=== PATIENT | male | born 1935 | race Caucasian/White ===

== ENCOUNTER → 2017-02-27 | Outpatient (CLI) | payer OTHER ==
[2014-04-12 11:48] VITALS: BP 130/94
[2017-02-27 09:27] LABS: BASOPHILS # (AUTO) 0.1 X10^3/uL (0.0-0.1); BASOPHILS % (AUTO) 1.1 % (0.2-1.0); EOSINOPHILS # (AUTO) 0.2 x10^3/uL (0.0-0.2); EOSINOPHILS % (AUTO) 4.6 % (0.9-2.9); HEMATOCRIT 34.4 % (42.0-54.0); HEMOGLOBIN 11.5 g/dL (13.5-18.0); LYMPHOCYTES # (AUTO) 1.1 X10^3/uL (1.3-2.9); LYMPHOCYTES % (AUTO) 21.9 % (21.0-51.0); MEAN CORPUSCULAR HEMOGLOBIN 30.7 pg (27.0-34.0); MEAN CORPUSCULAR HGB CONC 33.5 g/dL (33.0-35.0); MEAN CORPUSCULAR VOLUME 91.8 fL (80.0-100.0); MEAN PLATELET VOLUME 8.4 fL (7.4-11.0); MONOCYTES # (AUTO) 0.5 x10^3/uL (0.3-0.8); NEUTROPHILS % (AUTO) 62.4 % (42.0-75.0); PLATELET COUNT 145 X10^3/uL (150.0-450.0); RED BLOOD COUNT 3.75 X10^6/uL (4.7-6.0); RED CELL DISTRIBUTION WIDTH 15.8 % (11.6-16.5); WHITE BLOOD COUNT 4.8 X10^3/uL (3.6-10.0)
[2017-02-27 09:41] LABS: ALANINE AMINOTRANSFERASE 22 Units/L (12-78); ALBUMIN 3.9 g/dL (3.4-5.0); ALKALINE PHOSPHATASE 86 Units/L (46-116); ASPARTATE AMINO TRANSFERASE 22 Units/L (15-37); BLOOD UREA NITROGEN 17 mg/dL (7-18); CALCIUM 8.8 mg/dL (8.5-10.1); CARBON DIOXIDE 27.9 mmol/L (21-32); CHLORIDE 103 mmol/L (98-107); CHOL/HDL RATIO 2.9 (0.0-5.0); CHOLESTEROL 86 mg/dL (0-200); CREATININE 1.08 mg/dL (0.70-1.30); GLUCOSE 93 mg/dL (65-99); HDL CHOLESTEROL 30 mg/dL (40-60); SODIUM 139 mmol/L (136-145); TOTAL PROTEIN 7.6 g/dL (6.4-8.2); TRIGLYCERIDES 72 mg/dL (0-150); eGFR BLACK RACES > 60 (>60); eGFR NON BLACK RACES > 60 (>60)
[2017-02-27 09:57] LABS: B-TYPE NATRIURETIC PEPTIDE 362 pg/mL (0-79)
== END ==
LOC: LAB 08:58
PROVIDERS: ATTEND Internal Medicine
DX: I50.9 Heart failure, unspecified (principal); I25.10 Atherosclerotic heart disease of native coronary artery without angina pectoris; E78.4 Other hyperlipidemia; E11.9 Type 2 diabetes mellitus without complications
CPT/HCPCS: 36415; 80053; 80061; 83880; 85025

== ENCOUNTER 2017-05-28 11:30 | Emergency (ER) | payer OTHER ==
[2017-05-28 11:40] VITALS: BMI 19.9
--- NOTE | 2017-05-28 12:36 | DR.GENAD ---
HPI - PCP Primary Care Physician: Merari - HPI Comment HPI Comment: HAVE HEADACHE. CAN REMEMBER THE FALL. - Complaint/Symptoms Chief Complaint Doctors Comments: FELL LAST NIGHT AND HAVE RT FOREHEAD AND PERIORBITAL SWELLING AND BRUISING. TAKES ELEQUEST. Chief Complaint:: "I fell last night and hit my head. It has swollen up and I have a huge knot on it. I want to make sure that I didn't do some bad damage." - Nurses notes reviewed Nurses Notes Review: Yes - Source History Provided: Patient - Mode of Arrival Mode of Arrival: Ambulatory - Timing Onset of Chief Complaint: 05/28/17 Came on: Suddenly - Duration Duration: Constant Duration: Hours - Severity Severity: Moderate PMH - PMH Past Medical History: Yes Past Medical History: CHF, Coronary Artery Disease, Hypertension Past Surgical History: Yes Surgical History: Angioplasty/Stents Past Surgical History Comment: Stents x2, bypasses x6 - Family History History of Family Medical Conditions: Yes Family Medical History: Diabetes Mellitus, Hypertension - Social History Does patient currently use any type of tobacco product: No Have you used tobacco products in the last 12 months: No Type of Tobacco Use: None Does any household member use tobacco: No Alcohol Use: None Do you use any recreational Drugs:: No Lives With: Family Lives Where: Home - infectious screening In the last 2 months have you had wt loss of >10#?: NO Have you had fever, night sweats or hemotysis?: No Have you traveled outside the country in the last 6 months?: No Isolation: Standard ROS - Review of Systems Constitutional: Fatigue Eyes: Other (RT PERIORBITAL SWELLING AND BRUISING.) ENTM: negative: Ear Pain, Nose Discharge, Nose Congestion, Throat Pain Respiratoy: Short of Breath (ON EXRTION). negative: Productive Cough, Wheezing , Hemoptysis Cardiovascular: No Symptoms Reported Gastrointestinal/Abdominal: No Symptoms Reported Genitourinary: No Symptoms Reported Neurological: No Symptoms Reported Musculoskeletal: Muscle Pain Integumentary: Bruises (RT FACE) Hematologic/Lymphatic: Easy Bleeding, Easy Bruising Endocrine: No Symptoms Reported All Other Systems: Reviewed and Negative PE - Vital Signs Vitals: Temperature 97.7 F Pulse Rate [Left Brachial] 61 Pulse Rate 61 Respiratory Rate 16 Blood Pressure [Right Arm] 145/86 Blood Pressure 104/61 O2 Sat by Pulse Oximetry 100 - General Limitations: No Limitations General Appearance: Alert - Head Head Exam: Other (RT PERIORBITAL AND FOREHEAD SWELLING AND BRUISING) - Eyes Eye exam: Normal Appearance, Periorbital Swelling (RT), Periorbital Tenderness ( RT) - ENT ENT Exam: Normal External Ear Exam External Ear Exam: Normal External Inspection TM/Canal Exam: Bilateral Normal Nose Exam: Normal Nose Exam Mouth Exam: Normal Inspection Throat Exam: Normal Inspection - Neck Neck Exam: Normal Inspection, Trachea Midline - Chest Chest Inspection: Symmetric Chest Wall Rise - Respiratory Respiratory Exam: Normal Lung Sounds Bilat Respiratory Exam: Bilateral Clear to Auscultation - Cardiovascular Cardiovascular Exam: Irregular Rhythm - Abdominal Exam Abdominal Exam: Normal Bowel Sounds, Soft. negative: Tenderness - Extremities Extremities Exam: Normal Inspection - Back Back Exam: Paraspinal Tenderness - Neurologic Neurological Exam: Alert, Oriented X3 - Psychiatric Psychiatric Exam: Normal Affect, Normal Mood - Skin Skin Exam: Erythema MDM - Additional Information Additional Information Obtained From: Family - Differential Diagnosis Differential Diagnosis: CONTUSION RT FACE AND FOREHEAD, HEAD TRAUMA, FACIAL FRACTURE. Course - Treatment Treatment: SEE ORDERS. - Education/Counseling Education/Counseling: Patient, Family, Education Educated On: Treatment, Needs for Follow Up ROR - Labs Reviewed Laboratory Results Reviewed?: Yes Result Diagrams: 05/28/17 12:34 05/28/17 12:34 Laboratory: WBC 4.6 X10^3/uL (3.6-10.0) 05/28/17 12:34 RBC 3.35 X10^6/uL (4.7-6.0) L 05/28/17 12:34 Hgb 10.5 g/dL (13.5-18.0) L 05/28/17 12:34 Hct 30.6 % (42.0-54.0) L 05/28/17 12:34 MCV 91.4 fL (80.0-100.0) 05/28/17 12:34 MCH 31.3 pg (27.0-34.0) 05/28/17 12:34 MCHC 34.2 g/dL (33.0-35.0) 05/28/17 12:34 RDW 15.7 % (11.6-16.5) 05/28/17 12:34 Plt Count 152 X10^3/uL (150.0-450.0) 05/28/17 12:34 MPV 8.3 fL (7.4-11.0) 05/28/17 12:34 Neut % 62.3 % (42.0-75.0) 05/28/17 12:34 Lymph % 20.8 % (21.0-51.0) L 05/28/17 12:34 [place] % 11.8 % (0.0-13.0) 05/28/17 12:34 Eos % 4.4 % (0.9-2.9) H 05/28/17 12:34 Baso % 0.7 % (0.2-1.0) 05/28/17 12:34 Neut # 2.9 x10^3/uL (2.2-4.8) 05/28/17 12:34 Lymph # 1.0 X10^3/uL (1.3-2.9) L 05/28/17 12:34 [place] # 0.5 x10^3/uL (0.3-0.8) 05/28/17 12:34 Eos # 0.2 x10^3/uL (0.0-0.2) 05/28/17 12:34 Baso # 0.0 X10^3/uL (0.0-0.1) 05/28/17 12:34 Absolute Nucleated RBC 0.0 /100WBC 05/28/17 12:34 Sodium 138 mmol/L (136-145) 05/28/17 12:34 Corrected Sodium 139 mmol/L (136-145) 05/28/17 12:34 Potassium 3.8 mmol/L (3.5-5.1) 05/28/17 12:34 Chloride 100 mmol/L (98-107) 05/28/17 12:34 Carbon Dioxide 25.9 mmol/L (21-32) 05/28/17 12:34 BUN 31 mg/dL (7-18) H 05/28/17 12:34 Creatinine 1.37 mg/dL (0.70-1.30) H 05/28/17 12:34 Est GFR (MDRD) Af Amer > 60 (>60) 05/28/17 12:34 Est GFR (MDRD) Non-Af 53 (>60) L 05/28/17 12:34 Glucose 142 mg/dL (65-99) H 05/28/17 12:34 Calcium 8.8 mg/dL (8.5-10.1) 05/28/17 12:34 Corrected Calcium TNP 05/28/17 12:34 Total Bilirubin 0.50 mg/dL (0.2-1.0) 05/28/17 12:34 AST 21 Units/L (15-37) 05/28/17 12:34 ALT 20 Units/L (12-78) 05/28/17 12:34 Alkaline Phosphatase 122 Units/L (46-116) H 05/28/17 12:34 Creatine Kinase 80 Units/L (39-308) 05/28/17 12:34 CK-MB (CK-2) < 1.0 ng/mL (0-4.0) 05/28/17 12:34 CK/CKMB % Calc 1.3 % (<4) 05/28/17 12:34 Troponin I 0.05 ng/mL (0-1.5) 05/28/17 12:34 Total Protein 7.1 g/dL (6.4-8.2) 05/28/17 12:34 Albumin 3.6 g/dL (3.4-5.0) 05/28/17 12:34 Globulin 3.5 g/dL (2.5-4.5) 05/28/17 12:34 Albumin/Globulin Ratio 1.0 Ratio (1.1-2.1) L 05/28/17 12:34 - XRAY XRAY Interpreted by: Radiologist XRAY Findings: REPORT DISCUSS WITH PATIENT AND HIS FAMILY. - EKG Rhythm: Afib - Diagnosis Discharge Problem: Traumatic hematoma of forehead Qualifiers: Encounter type: initial encounter Qualified Code(s): S00.83XA - Contusion of other part of head, initial encounter Periorbital contusion of right eye Qualifiers: Encounter type: initial encounter Qualified Code(s): S05.11XA - Contusion of eyeball and orbital tissues, right eye, initial encounter Headache Qualifiers: Headache type: unspecified Headache chronicity pattern: acute headache Intractability: not intractable Qualified Code(s): R51 - Headache Head trauma Qualifiers: Encounter type: initial encounter Qualified Code(s): S09.90XA - Unspecified injury of head, initial encounter - Discharge Plan Disposition: 01 HOME, SELF-CARE Condition: Stable - Follow ups/Referrals Follow ups/Referrals: Jessie JOHNSON [Primary Care Provider] - 1 day - Instructions Instructions: Head Injury, Adult, [id number], Hematoma Additional Instructions: RETURN TO ED IF WORSE. SUTURE OUT IN 10 DAYS
[2017-05-28] MEDS ORDERED: ADACEL TDaP IM ONE ×2 (12:43→12:44)
[2017-05-28 12:45] LABS: BASOPHILS % (AUTO) 0.7 % (0.2-1.0); EOSINOPHILS # (AUTO) 0.2 x10^3/uL (0.0-0.2); EOSINOPHILS % (AUTO) 4.4 % (0.9-2.9); HEMATOCRIT 30.6 % (42.0-54.0); HEMOGLOBIN 10.5 g/dL (13.5-18.0); LYMPHOCYTES % (AUTO) 20.8 % (21.0-51.0); MEAN CORPUSCULAR HEMOGLOBIN 31.3 pg (27.0-34.0); MEAN CORPUSCULAR HGB CONC 34.2 g/dL (33.0-35.0); MEAN CORPUSCULAR VOLUME 91.4 fL (80.0-100.0); MEAN PLATELET VOLUME 8.3 fL (7.4-11.0); MONOCYTES # (AUTO) 0.5 x10^3/uL (0.3-0.8); MONOCYTES % (AUTO) 11.8 % (0.0-13.0); NEUTROPHILS # (AUTO) 2.9 x10^3/uL (2.2-4.8); NEUTROPHILS % (AUTO) 62.3 % (42.0-75.0); PLATELET COUNT 152 X10^3/uL (150.0-450.0); RED BLOOD COUNT 3.35 X10^6/uL (4.7-6.0); RED CELL DISTRIBUTION WIDTH 15.7 % (11.6-16.5); WHITE BLOOD COUNT 4.6 X10^3/uL (3.6-10.0)
[2017-05-28 12:59] LABS: BLOOD UREA NITROGEN 31 mg/dL (7-18); CALCIUM 8.8 mg/dL (8.5-10.1); CARBON DIOXIDE 25.9 mmol/L (21-32); CHLORIDE 100 mmol/L (98-107); COR NA(FOR HYPERGLY) 139 mmol/L (136-145); CREATININE 1.37 mg/dL (0.70-1.30); SODIUM 138 mmol/L (136-145); TROPONIN I 0.05 ng/mL (0-1.5); eGFR BLACK RACES > 60 (>60); eGFR NON BLACK RACES 53 (>60)
[2017-05-28 13:03] LABS: ALANINE AMINOTRANSFERASE 20 Units/L (12-78); ALBUMIN 3.6 g/dL (3.4-5.0); ALKALINE PHOSPHATASE 122 Units/L (46-116); ASPARTATE AMINO TRANSFERASE 21 Units/L (15-37); CKMB % 1.3 % (<4); CREATINE KINASE 80 Units/L (39-308); CREATINE KINASE MB < 1.0 ng/mL (0-4.0); TOTAL PROTEIN 7.1 g/dL (6.4-8.2)
[2017-05-28] MEDS ORDERED: HYDROGEN PEROXIDE 3% ONE (13:36)
--- NOTE | 2017-05-28 14:09 | CT ---
HEAD CT WITHOUT IV CONTRAST CT FACE WITHOUT IV CONTRAST CLINICAL INDICATION: Fall with facial laceration TECHNIQUE: Axial CT images from skull base to vertex without IV contrast. Multiple-row detector helic al CT examination of the facial bones and mandible without IV contrast. Axial, sagittal, and coronal reconstructed images. Dose reduction techniques including Automated Exposure Control (AEC) and adjus tment of mA and kV were utlized. COMPARISON: None FINDINGS: Head CT: Diffuse patchy and confluent white matter hypoattenuation with associated volume loss . There is no evidence of acute infarction, intracranial hemorrhage, mass or mass effect, or abnormal extra-axial collection. The density of the larger dural venous sinuses is normal. Age-related, ex- vacuo dilatation of the ventricles and sulci . The skull base and calvarium are normal. The included paranasal sinuses and mastoid air cells are p redominantly clear. Large right frontal scalp hematoma Face CT: The facial bones including the mandible are within normal limits. Specifically, there is no evidence of fracture or dislocation, and no evidence of aggressive osseous lesions. The globes are normal in size, contour, and position. The orbital yang and optic canals are normal. The visualized parana yasir sinuses and tympanomastoid cavities are unopacified. IMPRESSION: 1. No acute intracranial abnormality. 2. No acute fracture of the facial bones 3. Large frontal scalp hematoma. 4. 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 Reported By:
[2017-05-28 15:15] VITALS: BP 145/86
--- NOTE | 2017-05-28 16:18 | RAD ---
HISTORY: Fall with pain Study: Single view of the chest. Comparison: 07/23/2015 Findings: Marked cardiomegaly and pulmonary vascular congestion. No focal consolidations, pleural effusions or pneumothorax. Osseous structures demonstrate no acute abnormality. IMPRESSION: 1. Cardiomegaly and congestion. Reported By:
== END 2017-05-28 15:16 | disposition home or self-care (01) ==
LOC: ER 11:44
DX: S00.83XA Contusion of other part of head, initial encounter (principal); S05.11XA Contusion of eyeball and orbital tissues, right eye, initial encounter; R51 Headache; S09.90XA Unspecified injury of head, initial encounter; W19.XXXA Unspecified fall, initial encounter; Y92.9 Unspecified place or not applicable; I51.7 Cardiomegaly
CPT/HCPCS: 36415; 70450; 70486; 71010; 80053; 82550; 82553; 84484; 85025; 90471; 93005; 93010; 99282; 99283

== ENCOUNTER 2017-06-13 16:03 | Emergency (ER) | payer OTHER ==
[2017-06-13 16:10] VITALS: BP 148/83; BMI 19.9
--- NOTE | 2017-06-13 16:58 | DR.GENAD ---
HPI - PCP Primary Care Physician: Merari - HPI Comment HPI Comment: FELL AND HIT RT FORE HEAD TWO WEEKS AGO. HEMATOMA WITH ABRSSION SUSTAIN. NOW INFECTED AND HURTING. NO FEVER. - Complaint/Symptoms Chief Complaint Doctors Comments: INFECTED HEMATOMA RT FORE HEAD. Chief Complaint:: "I fell about 2 weeks ago and hit my head. It was really swollen so I came into the ER. They ran a bunch of tests and said that everything was okay. It is still swollen really bad and my eye on that side was acting up this morning. I just want to make sure it is healing okay." Self Treatment fo Chief Complaint: Patient took a Hydrocodone 10 - Nurses notes reviewed Nurses Notes Review: Yes - Source History Provided: Patient - Mode of Arrival Mode of Arrival: Ambulatory - Timing Onset of Chief Complaint: 05/21/17 Came on: Suddenly - Duration Duration: Constant Duration: Days - Severity Severity: Moderate PMH - PMH Past Medical History: Yes Past Medical History: CHF, Coronary Artery Disease, Hypertension Past Surgical History: Yes Surgical History: Angioplasty/Stents - Family History History of Family Medical Conditions: Yes Family Medical History: Diabetes Mellitus, Hypertension - Social History Does patient currently use any type of tobacco product: No Have you used tobacco products in the last 12 months: No Type of Tobacco Use: None Does any household member use tobacco: No Alcohol Use: None Do you use any recreational Drugs:: No Lives With: Family Lives Where: Home - infectious screening In the last 2 months have you had wt loss of >10#?: NO Have you had fever, night sweats or hemotysis?: No Have you traveled outside the country in the last 6 months?: No Isolation: Standard ROS - Review of Systems Constitutional: No Symptoms Reported Eyes: No Symptoms Reported ENTM: No Symptoms Reported Respiratoy: No Symptoms Reported Cardiovascular: No Symptoms Reported Gastrointestinal/Abdominal: No Symptoms Reported Genitourinary: No Symptoms Reported Neurological: Headache Musculoskeletal: No Symptoms Reported Integumentary: Change in Color (REDNESS SWELLING AND TENDERNESS RIGHT FOREHEAD.) Hematologic/Lymphatic: Easy Bleeding, Easy Bruising Endocrine: No Symptoms Reported All Other Systems: Reviewed and Negative PE - Vital Signs Vitals: Temperature 98.6 F Pulse Rate 78 Respiratory Rate 18 Blood Pressure [Right Arm] 145/86 Blood Pressure 148/83 O2 Sat by Pulse Oximetry 96 - General Limitations: No Limitations - Head Head Exam: Normal Inspection - Eyes Eye exam: Periorbital Swelling (RT FOERHEAD.), Periorbital Tenderness - ENT ENT Exam: Normal External Ear Exam External Ear Exam: Normal External Inspection TM/Canal Exam: Bilateral Normal Mouth Exam: Normal Inspection Throat Exam: Normal Inspection - Neck Neck Exam: Normal Inspection - Chest Chest Inspection: Symmetric Chest Wall Rise - Respiratory Respiratory Exam: Normal Lung Sounds Bilat Respiratory Exam: Bilateral Clear to Auscultation - Cardiovascular Cardiovascular Exam: Regular Rate, Normal Rhythm, Normal Heart Sounds - Abdominal Exam Abdominal Exam: Normal Bowel Sounds, Soft. negative: Tenderness - Extremities Extremities Exam: Normal Inspection - Back Back Exam: Normal Inspection - Neurologic Neurological Exam: Alert, Oriented X3 - Psychiatric Psychiatric Exam: Normal Affect, Normal Mood - Skin Skin Exam: Erythema (SWELLING AND TENDERNESS RIGHT FOREHEAD.) MDM - Additional Information Additional Information Obtained From: Family - Differential Diagnosis Differential Diagnosis: INFECTED HEMATOMA RIGHT FOREHEAD. Course - Treatment Treatment: SEE ORDERS - Education/Counseling Education/Counseling: Patient, Family, Education Educated On: Treatment, Diagnosis, Needs for Follow Up ROR - Labs Reviewed Laboratory Results Reviewed?: Yes Result Diagrams: 06/13/17 17:25 06/13/17 17:25 Laboratory: WBC 5.8 X10^3/uL (3.6-10.0) 06/13/17 17:25 RBC 3.14 X10^6/uL (4.7-6.0) L 06/13/17 17:25 Hgb 9.8 g/dL (13.5-18.0) L 06/13/17 17:25 Hct 29.0 % (42.0-54.0) L 06/13/17 17:25 MCV 92.3 fL (80.0-100.0) 06/13/17 17:25 MCH 31.4 pg (27.0-34.0) 06/13/17 17:25 MCHC 34.0 g/dL (33.0-35.0) 06/13/17 17:25 RDW 16.5 % (11.6-16.5) 06/13/17 17:25 Plt Count 155 X10^3/uL (150.0-450.0) 06/13/17 17:25 MPV 7.9 fL (7.4-11.0) 06/13/17 17:25 Neut % 63.5 % (42.0-75.0) 06/13/17 17:25 Lymph % 19.2 % (21.0-51.0) L 06/13/17 17:25 [place] % 11.7 % (0.0-13.0) 06/13/17 17:25 Eos % 4.7 % (0.9-2.9) H 06/13/17 17:25 Baso % 0.9 % (0.2-1.0) 06/13/17 17:25 Neut # 3.7 x10^3/uL (2.2-4.8) 06/13/17 17:25 Lymph # 1.1 X10^3/uL (1.3-2.9) L 06/13/17 17:25 [place] # 0.7 x10^3/uL (0.3-0.8) 06/13/17 17:25 Eos # 0.3 x10^3/uL (0.0-0.2) H 06/13/17 17:25 Baso # 0.1 X10^3/uL (0.0-0.1) 06/13/17 17:25 Absolute Nucleated RBC 0.0 /100WBC 06/13/17 17:25 INR Target Range - 06/13/17 17:25 INR 1.38 (0.8-1.3) H 06/13/17 17:25 PTT 42.2 SECONDS (22.9-36.5) H 06/13/17 17:25 PTT Comment - 06/13/17 17:25 Sodium 136 mmol/L (136-145) 06/13/17 17:25 Corrected Sodium TNP 06/13/17 17:25 Potassium 4.3 mmol/L (3.5-5.1) 06/13/17 17:25 Chloride 101 mmol/L (98-107) 06/13/17 17:25 Carbon Dioxide 23.7 mmol/L (21-32) 06/13/17 17:25 BUN 24 mg/dL (7-18) H 06/13/17 17:25 Creatinine 0.98 mg/dL (0.70-1.30) 06/13/17 17:25 Est GFR (MDRD) Af Amer > 60 (>60) 06/13/17 17:25 Est GFR (MDRD) Non-Af > 60 (>60) 06/13/17 17:25 Glucose 97 mg/dL (65-99) 06/13/17 17:25 Calcium 8.9 mg/dL (8.5-10.1) 06/13/17 17:25 Corrected Calcium TNP 06/13/17 17:25 Total Bilirubin 0.60 mg/dL (0.2-1.0) 06/13/17 17:25 AST 27 Units/L (15-37) 06/13/17 17:25 ALT 21 Units/L (12-78) 06/13/17 17:25 Alkaline Phosphatase 97 Units/L (46-116) 06/13/17 17:25 Total Protein 7.4 g/dL (6.4-8.2) 06/13/17 17:25 Albumin 3.6 g/dL (3.4-5.0) 06/13/17 17:25 Globulin 3.8 g/dL (2.5-4.5) 06/13/17 17:25 Albumin/Globulin Ratio 0.9 Ratio (1.1-2.1) L 06/13/17 17:25 - Diagnosis Discharge Problem: Infection of hematoma of wound - Discharge Plan Disposition: 01 HOME, SELF-CARE Condition: Stable Prescriptions: Doxycycline Hyclate 100 mg PO BID #14 tablet Hydrocodone-Acet 5 mg/325 mg [[place] 5/325 mg Tab] 1 tab PO Q12H PRN #10 tab PRN Reason: - Follow ups/Referrals Follow ups/Referrals: Jessie JOHNSON [Primary Care Provider] - 3 days JOSE YEUNG [CONSULTING PHYSICIAN] - 06/15/17 - Instructions Instructions: Abscess, [id number], Hematoma Additional Instructions: RETURN TO ED IF WORSE.
[2017-06-13 17:37] LABS: BASOPHILS # (AUTO) 0.1 X10^3/uL (0.0-0.1); BASOPHILS % (AUTO) 0.9 % (0.2-1.0); EOSINOPHILS # (AUTO) 0.3 x10^3/uL (0.0-0.2); EOSINOPHILS % (AUTO) 4.7 % (0.9-2.9); HEMOGLOBIN 9.8 g/dL (13.5-18.0); LYMPHOCYTES # (AUTO) 1.1 X10^3/uL (1.3-2.9); LYMPHOCYTES % (AUTO) 19.2 % (21.0-51.0); MEAN CORPUSCULAR HEMOGLOBIN 31.4 pg (27.0-34.0); MEAN CORPUSCULAR VOLUME 92.3 fL (80.0-100.0); MEAN PLATELET VOLUME 7.9 fL (7.4-11.0); MONOCYTES # (AUTO) 0.7 x10^3/uL (0.3-0.8); MONOCYTES % (AUTO) 11.7 % (0.0-13.0); NEUTROPHILS # (AUTO) 3.7 x10^3/uL (2.2-4.8); NEUTROPHILS % (AUTO) 63.5 % (42.0-75.0); PLATELET COUNT 155 X10^3/uL (150.0-450.0); RED BLOOD COUNT 3.14 X10^6/uL (4.7-6.0); RED CELL DISTRIBUTION WIDTH 16.5 % (11.6-16.5); WHITE BLOOD COUNT 5.8 X10^3/uL (3.6-10.0)
[2017-06-13 17:47] LABS: ALANINE AMINOTRANSFERASE 21 Units/L (12-78); ALBUMIN 3.6 g/dL (3.4-5.0); ALKALINE PHOSPHATASE 97 Units/L (46-116); ASPARTATE AMINO TRANSFERASE 27 Units/L (15-37); BLOOD UREA NITROGEN 24 mg/dL (7-18); CALCIUM 8.9 mg/dL (8.5-10.1); CARBON DIOXIDE 23.7 mmol/L (21-32); CHLORIDE 101 mmol/L (98-107); CREATININE 0.98 mg/dL (0.70-1.30); SODIUM 136 mmol/L (136-145); TOTAL PROTEIN 7.4 g/dL (6.4-8.2); eGFR BLACK RACES > 60 (>60); eGFR NON BLACK RACES > 60 (>60)
[2017-06-13] MEDS ORDERED: VIBRAMYCIN PO ONE ×2 (18:47→18:55)
[2017-06-13] MEDS ORDERED: NORCO 5/325 MG TAB PO ONE (18:49)
[2017-06-13] MEDS ORDERED: ANCEF VIAL 1 GM ONE (18:54)
[2017-06-13] MEDS ORDERED: NORCO 5/325 MG TAB ONE (18:55)
[2017-06-13] MEDS ORDERED: ANCEF VIAL 1 GM 1 GM in NS 50 ML IV + SPIKE MINIBAG* 50 ML IV SCH (19:00)
== END 2017-06-13 19:14 | disposition home or self-care (01) ==
LOC: ER 16:18
DX: T81.4XXA Infection following a procedure, initial encounter (principal); W19.XXXA Unspecified fall, initial encounter; Y92.9 Unspecified place or not applicable
CPT/HCPCS: 36415; 80053; 85025; 85610; 85730; 96372; 99283; J0690